=== PATIENT | female | born 1985 | race African-American/Black ===

== ENCOUNTER 2018-08-15 19:39 | Emergency (ER) | payer MEDICARE, OTHER ==
[~2018-08-15] VITALS: Ht 152.4 cm; Wt 95.3 kg
[2018-08-15] MEDS ORDERED: IBUPROFEN400 MG PO (20:29)
[2018-08-15] MEDS ORDERED: BROMFED DM COU118 ML PO (20:29)
[2018-08-15] MEDS ORDERED: ACETAMINOPHEN 325 MG TAB PO ONE (20:30)
[2018-08-15] MEDS ORDERED: IBUPROFEN 400 MG TAB PO ONE (20:30)
[2018-08-16 00:58] VITALS: BP 138/86
== END 2018-08-15 20:50 | disposition home or self-care (01) ==
LOC: FSED 19:39
DX: R05 Cough (principal); R07.89 Other chest pain; J02.9 Acute pharyngitis, unspecified; J00 Acute nasopharyngitis [common cold]; B34.9 Viral infection, unspecified
CPT/HCPCS: 87400; 99283

== ENCOUNTER 2018-09-01 08:36 | Emergency (ER) | payer MEDICARE, OTHER ==
[~2018-09-01] VITALS: Ht 152.4 cm; Wt 98.9 kg
[~2018-09-01 08:36] MED LIST: BROMFED DM COU118 ML PO; IBUPROFEN400 MG PO
== END 2018-09-01 10:04 | disposition home or self-care (01) ==
LOC: FSED 08:36
DX: B37.3 Candidiasis of vulva and vagina (principal)
CPT/HCPCS: 81003; 81025; 99284

== ENCOUNTER 2018-12-04 22:53 | Emergency (ER) | payer OTHER ==
[~2018-12-04] VITALS: Ht 152.4 cm; Wt 98.9 kg
--- NOTE | 2018-12-04 23:35 | Diagnostic Imaging Report ---
Left wrist 3 - views HISTORY: Pain COMPARISON: None FINDINGS: No displaced fracture. Osseous alignment is within normal limits. The joint spaces are well-maintained. Mild subcutaneous edema. IMPRESSION: No acute radiographic abnormality. Signed by: Dr. Johanna Joy M.D. on 12/04/2018 11:32 PM
[2018-12-04 23:45] VITALS: BP 149/89
== END 2018-12-04 23:40 | disposition home or self-care (01) ==
LOC: FSED 22:53
DX: M25.532 Pain in left wrist (principal)
CPT/HCPCS: 99283

== ENCOUNTER 2019-11-09 13:28 | Emergency (ER) | payer SELFPAY ==
[~2019-11-09] VITALS: Ht 152.4 cm; Wt 98.9 kg
--- OUTSIDE RECORDS SUMMARY | 2019-11-09 13:31 | XMS REPORT ---
Author Author [facility] Organization [facility] Address Unknown Phone Unavailable Care Team Providers Care Medical Equipment Sales Name Role Phone Cristian CASTILLO Unavailable Unavailable Payers Payer Name Policy Type Policy Number Effective Date Expiration Date Problems This patient has no known problems. Allergies, Adverse Reactions, Alerts Allergy Name Allergy Type Status Severity Reaction(s) Onset Date Inactive Date Treating Clinician Comments No Known Allergies DA Active U 2015-08-18 00:00:00 Medications This patient has no known medications. Results Test Description Test Time Test Comments Text Results Atomic Results Result Comments WRIST 3VW LT - HOPD 2018-12-04 23:30:00 [facility] [address] [place] [address] Patient Name: EFREN JAMISON MR #: [id number] : 1985 Age/Sex: 33/F Req #: [id number] Adm Physician: Ordered by: DAVID CASTILLO MD Report #: [id number] Location: [facility] Room/Bed: Procedure: [id number] HOPD/WRIST 3VW LT - HOPD Exam Date: 12/04/18 Exam Time: 2319 REPORT STATUS: Signed Left wrist 3 - views HISTORY: Pain COMPARISON: None FINDINGS: No displaced fracture. Osseous alignment is within normal limits. The joint spaces are well-maintained. Mild subcutaneous edema. IMPRESSION: No acute radiographic abnormality. Signed by: Dr. Johanna Valenzuela M.D. on 12/04/2018 11:32 PM Dictated By: SHIMA VALENZUELA MD, MD 31 Transcribed By: LAURA on 12/04/182331 COPY TO: DAVID CASTILLO MD
[2019-11-09] MEDS ORDERED: TAMIFLU75 MG PO (14:12)
[2019-11-09] MEDS ORDERED: AZITHROMYCIN250 MG PO (14:12)
== END 2019-11-09 14:15 | disposition home or self-care (01) ==
LOC: FSED 13:28
DX: R50.9 Fever, unspecified (principal); R05 Cough; J20.9 Acute bronchitis, unspecified; J02.0 Streptococcal pharyngitis
CPT/HCPCS: 83518; 87400; 99283

== ENCOUNTER 2020-04-20 15:03 | Emergency (ER) | payer SELFPAY ==
[~2020-04-20] VITALS: Ht 152.4 cm; Wt 95.3 kg
[~2020-04-20 15:03] MED LIST changes: +AZITHROMYCIN250 MG PO; +TAMIFLU75 MG PO
--- NOTE | 2020-04-20 15:12 | Emergency Department Note ---
History of Present Illnes History of Present Illness History of Present Illness This is a 34 year old female c/o sinus drainage, sneezing watery eyes, some mucus with trace blood coming out at times. She also c/o right mid back pain on and off few weeks no SOB no f/c. . Arrival Mode: Car Rn Operating Room Required: No Onset (how long ago): week(s) Radiation: Reports back Severity: mild Onset quality: gradual Duration (how long): week(s) Progression: waxing and waning Chronicity: new Relieving factors: none Exacerbating factors: none Treatments prior to arrival: none Past Medical/Family History Physician Review I have reviewed the patient's past medical and family history. Any updates have been documented here. Past Medical History Recent Fever: No Clinical Suspicion of Infectio: No New/Unexplained Change in Ment: No Past Medical History: None, Hyperlipedemia Past Surgical History: Social History Smoking Cessation: Never Smoker Counseling Performed: No Any Illegal Drug Use: No TB Exposure/Symptoms: No Physically hurt or threatened: No (child has asthma) Other Last Tetanus: UNK Any Pre-Existing Lines (PICC,: No Review of Systems Review of Systems Constitutional: Reports no symptoms EENTM: Reports no symptoms Cardiovascular: Reports no symptoms Respiratory: Reports as per HPI Gastrointestinal: Reports no symptoms Genitourinary: Reports no symptoms Musculoskeletal: Reports back pain (right lateral back pain, mid level) Integumentary: Reports no symptoms Neurological: Reports no symptoms Psychological: Reports no symptoms Endocrine: Reports no symptoms Hematological/Lymphatic: Reports no symptoms Physical Exam Related Data Allergies: Coded Allergies: No Known Allergies (Unverified , 08/15/18) Vital signs reviewed: Yes Physical Exam CONSTITUTIONAL Constitutional: Present well-developed, Present well-nourished HENT HENT: Present normocephalic, Present atraumatic, Present oropharynx clear/moist, Present nose normal HENT L/R: Present left ext ear normal, Present right ext ear normal EYES Eyes: Reports PERRL, Reports conjunctivae normal NECK Neck: Present ROM normal PULMONARY Pulmonary: Present effort normal, Present breath sounds normal CARDIOVASCULAR Cardiovascular: Present regular rhythm, Present heart sounds normal, Present ca pillary refill normal, Present normal rate GASTROINTESTINAL Abdominal: Present soft, Present nontender, Present bowel sounds normal GENITOURINARY Genitourinary: Present exam deferred SKIN Skin: Present warm, Present dry MUSCULOSKELETAL Musculoskeletal: Present ROM normal NEUROLOGICAL Neurological: Present alert, Present oriented x 3, Present no gross motor or sensory deficits PSYCHOLOGICAL Psychological: Present mood/affect normal, Present judgement normal Results Laboratory Lab results reviewed: No Imaging Imaging results reviewed: Yes (no acute) Assessment & Plan Medical Decision Making MDM sinusitis, URI, allergic rhinitis. Assessment & Plan Final Impression: (1) Sinusitis (2) Allergic rhinitis Depart Disposition: HOME, SELF-assisted Meds Active Scripts Amoxicillin (AMOXICILLIN) 500 Mg Capsule, 2 TAB PO BID for 10 Days, CAP Prov:DAVID CASTILLO MD 04/20/20 Fluticasone Propionate (Flonase Allergy Relief) 9.9 Ml [place].susp, 1 SPRAY NA DAILY, #1 Prov:DAVID CASTILLO MD 04/20/20 Loratadine (LORATADINE) 10 Mg Tablet, 10 MG PO DAILY, #30 TAB Prov:DAVID CASTILLO MD 04/20/20 Discontinued Scripts Oseltamivir Phosphate (TAMIFLU) 75 Mg Cap, 75 MG PO BID, #10 CAP Prov:PEDRO ESCOBAR MD 11/09/19 Azithromycin (Z-DAWN) 250 Mg Tablet, 1 PKG PO DIRECTED, #1 PKG 0 Refills Prov:PEDRO ESCOBAR MD 11/09/19 Ibuprofen (IBUPROFEN) 400 Mg Tablet, 400 MG PO Q4H, #30 TAB 0 Refills may take with 500mg Tylenol for extra pain/fever control Prov:ANA MOREIRA MD 08/15/18 D-Methorphan Hb/P-Epd Hcl/Bpm (BROMFED DM COUGH SYRUP) 118 Ml Syrup, 10 ML PO Q4H PRN for COUGH, #200 ML 0 Refills Prov:ANA MOREIRA MD 08/15/18 DAVID CASTILLO MD Apr 20, 2020 15:12
[2020-04-20] MEDS ORDERED: AMOXICILLIN500 MG PO (16:40)
[2020-04-20] MEDS ORDERED: LORATADINE10 MG PO (16:40)
[2020-04-20] MEDS ORDERED: FLONASE ALLERG9.9 ML (16:40)
--- NOTE | 2020-04-20 16:53 | Diagnostic Imaging Report ---
X-ray chest PA and lateral Comparison: None History: Blood in mucous Findings: Central airways, cardiomediastinal silhouettes, pleural spaces, diaphragms, lung base, visualized skeletal structures and upper abdomen are within normal limits. Impression: No significant abnormality on this exam. Signed by: Joe Schneider MD on 04/20/2020 4:50 PM
--- OUTSIDE RECORDS SUMMARY | 2020-04-21 20:55 | XMS REPORT | Continuity of Care Document ---
Author Author [facility] Organization [facility] Address [address] [place] [address] Phone Unavailable Care Team Providers Care Environmental Health Technologist Name Role Phone NO, PCP PCP Unavailable Cristian CASTILLO Attphys Unavailable Payers Payer Name Policy Type Policy Number Effective Date Expiration Date [facility] [id number] 2018 00:00:00 [facility] Problems Condition Name Condition Details Condition Category Status Onset Date Resolution Date Last Treatment Date Treating Clinician Comments Source Sinusitis Problem Active [facility] Allergic rhinitis Problem Active [facility] Allergies, Adverse Reactions, Alerts Allergy Name Allergy Type Status Severity Reaction(s) Onset Date Inacti ve Date Treating Clinician Comments Source No Known Allergies DA Active U 2015-08-18 00:00:00 [facility] Social History Social Habit Start Date Stop Date Quantity Comments Source Sex Assigned At 1985 00:00:00 1985 00:00:00 Female [facility] Medications Ordered Medication Name Filled Medication Name Start Date Stop Da te Current Medication? Ordering Clinician Indication Dosage Frequency Signature (SIG) Comments Components Source Amoxicillin Amoxicillin 2020-04-20 16:40:00 Yes 2 T wice A Day [facility] Fluticasone Propionate (Flonase Allergy Relief) 9.9 Ml SPRAY.SUSP Fluticasone Propionate (Flonase Allergy Relief) 9.9 Ml SPRAY.SUSP 2020-04-20 16:40:00 Yes 1 Daily [facility] Loratadine Loratadine 2020-04-20 16:40:00 Yes 10 Faina ly [facility] Oseltamivir Phosphate (Tamiflu) 75 Mg CAP Oseltamivir Phosphate (Tamiflu) 75 Mg CAP 2019-11-09 13:12:00 Yes 75 Twice A Day [facility] Azithromycin (Z-Juan) 250 Mg TABLET Azithromycin (Z-Juan) 250 Mg TABLET 2019-11-09 13:12:00 2020-04-20 00:00:00 No 1 As Directed [facility] D-Methorphan Hb/P-Epd Hcl/Bpm (Bromfed Dm Cough Syrup) 118 Ml SYRUP D-Methorphan Hb/P-Epd Hcl/Bpm (Bromfed Dm Cough Syrup) 118 Ml SYRUP 2018-08-15 19:29:00 2020-04-20 00:00:00 No 10 Every 4 Hours as nee ded for Cough [facility] Ibuprofen Ibuprofen 2018-08-15 19:29:00 2020-04-20 00:00:00 No 400 Every 4 Hours [facility] Vital Signs Vital Name Observation Time Observation Value Comments Source Weight 2020-04-20 16:05:00 210 [lb_av] [facility] BMI (Body Mass Index) 2020-04-20 16:05:00 41.0 kg/m2 [facility] Procedures This patient has no known procedures. Plan of Care Planned Activity Planned Date Details Comments Source Instructions Sinusitis - Acute [facility] Encounters Start Date/Time End Date/Time Encounter Type Admission Type Attendi [facility] Care Department Encounter ID Source 2020-04-20 16:30:00 2020-04-20 17:46:00 Departed Emergency Room 1 DAVID CASTILLO [facility] [id number] [facility] 2019-11-09 12:28:00 2019-11-09 13:15:00 Departed Emergency Room [facility] [id number] [facility] 2018-12-04 22:53:00 2018-12-04 23:40:00 Departed Emergency Room [address] [facility] [id number] [facility] 2018-09-01 08:36:00 2018-09-01 10:04:[address] [facility] [id number] [facility] 2018-08-15 19:39:00 2018-08-15 20:50:[address] [facility] [id number] [facility] Results Test Description Test Time Test Comments Results Result Comments Source CXR 2 VIEW - HOPD 2020-04-20 16:49:00 [place] [address] Patient Name: EFREN JAMISON MR #: [id number] : 1985 Age/Sex: 34/F Req #: [id number] Adm Physician: Ordered by: DAVID CASTILLO MD Report #: [id number] Location: [facility] Room/Bed: Procedure: [id number] HOPD/CXR 2 VIEW - HOPD Exam Date: 04/20/20 Exam Time: 1647 REPORT STATUS: Signed X-ray chest PA and lateral Comparison: None History: Blood in mucous Findings: Central airways, cardiomediastinal silhouettes, pleural spaces, diaphragms, lung base, visualized skeletal structures and upper abdomen are within normal limits. Impression: No significant abnormality on this exam. Signed by: Joe Sun MD on 04/20/2020 4:50 PM Dictated By: JOE SUN MD 49 Transcribed By: LAURA on 04/20/201649 COPY TO: DAVID CASTILLO MD - XR CHEST 2 V 2019-11-12 14:31:00 Name: EFREN JAMISON [facility] : 1985 Age/S:34 /F [address] [facility] Unit#:[id number] [place]: [place] [address] Phys: Benny Dean PEDIATRIC PSYCHIATRIST Dis Date: PHONE #: [phone] Status: PRE ER FAX #: [phone] Exam Date: 11/12/2019 Reason: COUGH EXAMS: CPT CODE: [id number] XR CHEST 2 V 92634 HISTORY: Cough. COMPARISON: None available. Location: [facility]. AP and lateral view of the chest: No acute infiltrates, effusion or congestion. Cardiac and the mediastinal silhouette are normal. IMPRESSION: No acute infiltrates, effusion or congestion. at 1431 Reported and signed by: Timothy Mackenzie M.D. CC: Doretha Eden MD; Benny Dean; Tere Martinez MD Technologist: Ely Sorenson Trnscrpt Data: 11/12/2019 (1431) [email or web address] Orig Print D/T: S: 11/12/2019 (4439) PAGE 1 Signed Report WRIST 3VW [facility] 2018-12-04 23:30:00 [facility] [address] [place] [id number] Patient Name: EFREN JAMISON MR #: [id number] : 1985 Age/Sex: 33/F Req #: [id number] Adm Physician: Ordered by: DAVID CASTILLO MD Report #: [id number] Location: [facility] Room/Bed: Procedure: [id number] HOPD/WRIST 3VW LT - HOPD Exam Date: 12/04/18 Exam Time: 2319 REPORT STATUS: Signed Left wrist 3 - views HISTORY: Pain COMPARISON: None FINDINGS: No displaced fracture. Osseous alignment is within normal limits. The joint spaces are well- maintained. Mild subcutaneous edema. IMPRESSION: No acute radiograp hic abnormality. Signed by: Dr. Johanna Valenzuela M.D. on 12/04/2018 11:32 PM Dictated By: SHIMA VALENZUELA MD, MD 827 Transcribed By: LAURA on 12/04/182331 COPY TO: DAVID CASTILLO MD
== END 2020-04-20 17:46 | disposition home or self-care (01) ==
LOC: FSED 16:30
DX: J32.9 Chronic sinusitis, unspecified (principal); J30.9 Allergic rhinitis, unspecified; R05 Cough; M54.9 Dorsalgia, unspecified; E78.5 Hyperlipidemia, unspecified
CPT/HCPCS: 71046; 99283

== ENCOUNTER 2020-09-07 20:00 | Emergency (ER) | payer SELFPAY ==
[~2020-09-07] VITALS: Ht 154.9 cm; Wt 99.8 kg
[~2020-09-07 20:00] MED LIST changes: +AMOXICILLIN500 MG PO; +FLONASE ALLERG9.9 ML; +LORATADINE10 MG PO
[2020-09-07] MEDS ORDERED: MACROBID 100 M100 MG PO (22:26)
[2020-09-07] MEDS ORDERED: NAPROSYN500 MG PO (22:26)
[2020-09-07 22:48] VITALS: BP 133/75
== END 2020-09-07 22:48 | disposition home or self-care (01) ==
LOC: FSED 21:31
DX: R10.33 Periumbilical pain (principal); K42.9 Umbilical hernia without obstruction or gangrene
CPT/HCPCS: 74176; 81003; 81025; 99283

== ENCOUNTER 2020-10-23 17:09 | Emergency (ER) | payer SELFPAY ==
[~2020-10-23] VITALS: Ht 154.9 cm; Wt 99.8 kg
[~2020-10-23 17:09] MED LIST changes: +MACROBID 100 M100 MG PO; +NAPROSYN500 MG PO
[2020-10-23] MEDS ORDERED: CEFDINIR300 MG PO (17:42)
[2020-10-23] MEDS ORDERED: LORATADINE10 MG PO (17:42)
[2020-10-23] MEDS ORDERED: IBUPROFEN IB200 MG PO (17:42)
[2020-10-23] MEDS ORDERED: FLONASE ALLERG9.9 ML (17:42)
== END 2020-10-23 17:55 | disposition home or self-care (01) ==
LOC: FSED 17:35
DX: H66.91 Otitis media, unspecified, right ear (principal); M54.2 Cervicalgia; M25.511 Pain in right shoulder
CPT/HCPCS: 99282

== ENCOUNTER 2021-06-30 09:31 | Emergency (ER) | payer SELFPAY ==
[~2021-06-30] VITALS: Ht 152.4 cm; Wt 95.3 kg
[~2021-06-30 09:31] MED LIST changes: +CEFDINIR300 MG PO; +IBUPROFEN IB200 MG PO
== END 2021-06-30 10:10 | disposition short-term general hospital (02) ==
LOC: FSED 10:10
DX: H92.01 Otalgia, right ear (principal)